=== PATIENT | female | born 1955 | race Caucasian/White ===

== ENCOUNTER 2017-03-12 07:51 | Emergency (ER) | END 2017-03-12 14:10 | disposition home or self-care (01) ==

== ENCOUNTER 2017-03-12 14:12 | Emergency (ER) | END 2017-03-12 17:44 | disposition left against medical advice (07) ==

== ENCOUNTER 2017-03-14 02:04 | Emergency (ER) | END 2017-03-14 06:40 | disposition home or self-care (01) ==

== ENCOUNTER 2017-06-15 19:00 | Emergency (ER) | END 2017-06-15 22:29 | disposition home or self-care (01) ==

== ENCOUNTER 2017-06-21 22:54 | Emergency (ER) | END 2017-06-22 02:43 | disposition home or self-care (01) ==

== ENCOUNTER 2017-06-30 17:57 | Emergency (ER) | END 2017-07-01 08:15 | disposition home or self-care (01) ==

== ENCOUNTER 2017-09-28 14:57 | Emergency (ER) | END 2017-09-28 19:30 | disposition left against medical advice (07) ==

== ENCOUNTER 2017-10-02 15:28 | Emergency (ER) | END 2017-10-02 16:26 | disposition left against medical advice (07) ==

== ENCOUNTER 2017-10-03 03:20 | Emergency (ER) | END 2017-10-03 09:45 | disposition home or self-care (01) ==

== ENCOUNTER 2017-11-20 21:54 | Emergency (ER) | END 2017-11-21 02:37 | disposition home or self-care (01) ==

== ENCOUNTER 2017-11-21 03:33 | Emergency (ER) | END 2017-11-21 09:08 ==

== ENCOUNTER 2018-03-15 20:19 | Emergency (ER) | payer MEDICARE, OTHER ==
[~2018-03-15] VITALS: Ht 165.1 cm; Wt 60.0 kg
[~2018-03-15 20:19] MED LIST: MIRT15TA PO; QUET200T PO
[2018-03-15 20:30] VITALS: Ht 165.1 cm; Wt 60.0 kg
[2018-03-15] MEDS ORDERED: KETOROLAC 30 MG INJ IM STA (20:34)
[2018-03-15] MEDS ORDERED: ALBUTEROL/IPRATROPIUM (NEB) 3 ML AMP HHN STA (21:05)
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
[2018-03-15] MEDS ORDERED: HYDR-3980 PO (21:58)
[2018-03-15] MEDS ORDERED: PHEN100C PO (21:58)
[2018-03-15] MEDS ORDERED: QUET100T PO (21:59)
[2018-03-15] MEDS ORDERED: QUET400T PO (21:59)
[2018-03-15] MEDS ORDERED: MIRT30TA PO (22:00)
== END 2018-03-15 22:00 | disposition home or self-care (01) ==
LOC: E/R 20:19
DX: Z77.21 Contact with and (suspected) exposure to potentially hazardous body fluids (principal); E03.9 Hypothyroidism, unspecified; Z87.891 Personal history of nicotine dependence; Z96.643 Presence of artificial hip joint, bilateral
CPT/HCPCS: 73130; 73630; 94664; 96372; 99284; J1885

== ENCOUNTER 2018-04-05 09:06 | Emergency (ER) | payer MEDICARE, OTHER ==
[~2018-04-05] VITALS: Ht 152.4 cm; Wt 57.0 kg
[~2018-04-05 09:06] MED LIST changes: +ACET-141 PO; +CLON-429 PO; +GABA300C16 PO; -MIRT15TA PO; +MIRT30TA PO; +PHEN100C PO; +PHEN200C PO; +QUET100T PO; -QUET200T PO; +QUET400T PO
[2018-04-05 09:18] VITALS: BP 132/60; PULSE 60; RESP 18; Ht 152.4 cm; Wt 57.0 kg
--- NOTE | 2018-04-05 13:16 | ERD ---
ER Documentation Chief Complaint Chief Complaint chronic back pain HPI Patient is a 63-year-old female who presents for pain. The patient was brought in by ambulance. She called 911 because she fell and said that she was having back pain, neck pain, and vagina pain. She is well-known to myself and to our staff and has frequent visits for the same. Review of the emergency department information exchange system shows visits to multiple emergency departments for a total of 151 visits over the past 12 months. ROS All systems reviewed and are negative except as per history of present illness. Medications Home Meds Reported Medications Acetaminophen* (Acetaminophen*) 500 MG Extra Strength Tablet, 500 MG PO Q4H PRN for PAIN AND OR ELEVATED TEMP, TAB 03/27/18 Phenytoin* Sodium Extended (Dilantin*) 200 Mg Capsule, 400 MG PO HS, CAP 03/27/18 Phenytoin* Sodium Extended (Dilantin*) 100 Mg Capsule, 100 MG PO AT NOON, CAP 03/27/18 Phenytoin* Sodium Extended (Dilantin*) 100 Mg Capsule, 100 MG PO QAM, CAP 03/27/18 Clonazepam* (Klonopin*) 0.5 Mg Tab, 0.5 MG PO Q6 PRN for ANXIETY, TAB 03/27/18 Gabapentin* (Gabapentin*) 300 Mg Capsule, 300 MG PO BID, #60 CAP 03/27/18 Mirtazapine* (Remeron*) 30 Mg Tablet, 30 MG PO BID, TAB 03/27/18 Quetiapine Fumarate* (Seroquel*) 400 Mg Tablet, 400 MG PO HS, TAB 03/27/18 Quetiapine Fumarate* (Seroquel*) 100 Mg Tablet, 100 MG PO AT NOON, #30 TAB 03/27/18 Quetiapine Fumarate* (Seroquel*) 100 Mg Tablet, 100 MG PO QAM, #60 TAB 03/27/18 Allergies Allergies: Coded Allergies: acetaminophen (Unverified Allergy, Intermediate, hives, 03/27/18) aspirin (Unverified Allergy, Intermediate, hives, 03/27/18) ibuprofen (Unverified Allergy, Intermediate, hives, 03/27/18) fish oil (Unverified Allergy, Unknown, 03/27/18) africa (Unverified Allergy, Unknown, 03/27/18) PMhx/Soc History of Surgery: Yes (Appy, Cholecystectomy;BILATERAL ANKLE SX, TOTAL HIP REPLACEMENT) Anesthesia Reaction: No Hx Neurological Disorder: Yes (Epilepsy) Hx Respiratory Disorders: No Hx Cardiac Disorders: No Hx Psychiatric Problems: Yes (DEPRESSION) Hx Miscellaneous Medical Probl: Yes (Hypothyroidism, LIVER CIRRHOSIS, HEP C) Hx Alcohol Use: Yes (daily) Hx Substance Use: Yes (METH) Hx Tobacco Use: Yes (1/2 pack per day) Smoking Status: Current every day smoker FmHx Family History: No diabetes Physical Exam Vitals Vital Signs Date Temp Pulse Resp B/P (MAP) Pulse Ox O2 O2 Flow FiO2 Time Delivery Rate 04/05/18 98.2 60 18 132/60 98 09:18 (84) Physical Exam Const: Complaining of pain Neur: Awake and alert Psych: Verbally abusive to myself and to staff Procedures/MDM Patient is a 63-year-old female who presents with a fall and complaints of pain. I offered her Tylenol and Motrin and she became very angry and started yelling and became abusive to myself and to staff. I doubt true traumatic injury at this time. She will be discharged. I do not believe she requires further workup or admission to the hospital at this time. Departure Diagnosis: Primary Impression: Chronic pain Chronic pain type: other chronic pain Qualified Codes: G89.29 - Other chronic pain Condition: Fair Patient Instructions: Chronic Pain Referrals: [facility] YOU HAVE RECEIVED A MEDICAL SCREENING EXAM AND THE RESULTS INDICATE THAT YOU DO NOT HAVE A CONDITION THAT REQUIRES URGENT TREATMENT IN THE EMERGENCY DEPARTMENT. FURTHER EVALUATION AND TREATMENT OF YOUR CONDITION CAN WAIT UNTIL YOU ARE SEEN IN YOUR DOCTORS OFFICE WITHIN THE NEXT 1-2 DAYS. IT IS YOUR RESPONSIBILITY TO MAKE AN APPOINTMENT FOR FOLOW-UP CARE. IF YOU HAVE A PRIMARY DOCTOR --you should call your primary doctor and schedule an appointment IF YOU DO NOT HAVE A PRIMARY DOCTOR YOU CAN CALL OUR PHYSICIAN REFERRAL HOTLINE AT IF YOU CAN NOT AFFORD TO SEE A PHYSICIAN YOU CAN CHOSE FROM THE FOLLOWING [facility] [address] [facility] [address] [facility] [address] [facility] [address] [facility] [address] [facility]. [facility]. [address] Additional Instructions: Call your primary care doctor TOMORROW for an appointment during the next 1 WEEK.Tell the private equity analyst that you were referred from this facility.See the doctor sooner or return here if your condition worsens before your appointment time. SONY GREENBERG MD Apr 05, 2018 13:16
== END 2018-04-05 10:56 | disposition home or self-care (01) ==
LOC: E/R 09:06
DX: G89.29 Other chronic pain (principal); E03.9 Hypothyroidism, unspecified; F17.210 Nicotine dependence, cigarettes, uncomplicated; Z96.643 Presence of artificial hip joint, bilateral
CPT/HCPCS: 99283

== ENCOUNTER 2018-04-09 04:13 | Emergency (ER) | payer MEDICARE, OTHER ==
[~2018-04-09] VITALS: Ht 170.2 cm; Wt 55.0 kg
[2018-04-09 04:26] VITALS: BP 134/74; PULSE 80; RESP 16; Ht 170.2 cm; Wt 55.0 kg
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
== END 2018-04-09 06:10 | disposition home or self-care (01) ==
LOC: E/R 04:13
DX: M79.671 Pain in right foot (principal); M79.672 Pain in left foot; G89.29 Other chronic pain; E03.9 Hypothyroidism, unspecified; F17.210 Nicotine dependence, cigarettes, uncomplicated; Z76.5 Malingerer [conscious simulation]; Z96.643 Presence of artificial hip joint, bilateral
CPT/HCPCS: 99282